=== PATIENT | male | born 1990 | race Caucasian/White ===

== ENCOUNTER 2023-10-18 19:59 | Emergency (ER) | payer OTHER ==
--- NOTE | 2023-10-18 20:43 | ERPHSYRPT ---
- History of Present Illness Time Seen by Provider: 10/18/23 20:43 Source: patient, family Exam Limitations: no limitations Physician History: pt has hemorrhoids and they have come out recently with pain. THere are thrombosed hemorrhoids chronic without much erythema and no signs of infection. rectal exam othw normal. Pt is advised that he will need treatment with surgery to [place] and tx these and should contact his friday for that referral. These were manually replaced but there are some external as well. Discussed risk/benefit of Tx with topical steroids and local anesthesia with pt and and they wish to proceed. No t-other complaints of symptoms at this time and ele diet OK. abd soft nontender without peritoneal signs. Timing/Duration: day(s) Severity: moderate Allergies/Adverse Reactions: No Known Drug Allergies Allergy (Unverified 10/18/23 20:49) Home Medications: ALPRAZolam 1 MG [Xanax 1 mg] 2 mg PO BID 10/18/23 [History] Dextroamphetamine/Amphetamine [Adderall 10 mg Tablet] 30 mg PO HS 10/18/23 [History] Dextroamphetamine/Amphetamine [Adderall Xr 30 mg Capsule] 30 mg PO DAILY 10/18/23 [History] Duloxetine HCl 30 mg [Cymbalta 30 MG Capsule] 2 tab PO DAILY 10/18/23 [History] Trazodone HCl 50 mg [Desyrel 50 mg] 50 mg PO HS 10/18/23 [History] Hx Tetanus, Diphtheria Vaccination/Date Given: Yes Hx Influenza Vaccination/Date Given: No Hx Pneumococcal Vaccination/Date Given: No - Review of Systems Constitutional: No Fever, No Chills Eyes: No Symptoms Ears, Nose, & Throat: No Symptoms Respiratory: No Cough, No Dyspnea Cardiac: No Chest Pain, No Edema, No Syncope Abdominal/Gastrointestinal: No Abdominal Pain, No Nausea, No Vomiting, No Diarrhea Genitourinary Symptoms: No Dysuria Musculoskeletal: No Back Pain, No Neck Pain Skin: Other (hemorrhoids no active bleeding), No Rash Neurological: No Dizziness, No Focal Weakness, No Sensory Changes Psychological: No Symptoms Endocrine: No Symptoms All Other Systems: Reviewed and Negative - Past Medical History Pertinent Past Medical History: No - Past Surgical History Past Surgical History: No - Social History Smoking Status: Current every day smoker Exposure to second hand smoke: No Drug Use: none Patient Lives Alone: No - Nursing Vital Signs Nursing Vital Signs: Initial Vital Signs Temperature 98.8 F 10/18/23 20:46 Pulse Rate 91 H 10/18/23 20:46 Respiratory Rate 16 10/18/23 20:46 Blood Pressure 122/82 10/18/23 20:46 O2 Sat by Pulse Oximetry 97 10/18/23 20:46 Pain Scale Pain Intensity 4 - Physical Exam General Appearance: no apparent distress, alert Eye Exam: PERRL/EOMI, eyes nml inspection Ears, Nose, Throat Exam: normal ENT inspection, TMs normal, pharynx normal, moist mucous membranes Neck Exam: normal inspection, non-tender, supple, full range of motion Respiratory Exam: normal breath sounds, lungs clear, No respiratory distress Cardiovascular Exam: regular rate/rhythm, normal heart sounds, normal peripheral pulses Gastrointestinal/Abdomen Exam: soft, normal bowel sounds, No tenderness, No mass Rectal Exam: normal rectal tone, hemorrhoids (reducible thrombosed not actively bleeding), other Back Exam: normal inspection, normal range of motion, No CVA tenderness, No vertebral tenderness Extremity Exam: normal inspection, normal range of motion, pelvis stable Neurologic Exam: alert, oriented x 3, cooperative, normal mood/affect, nml cerebellar function, nml station & gait, sensation nml, No motor deficits Skin Exam: normal color, warm, dry, No rash Lymphatic Exam: No adenopathy - Course Nursing assessment & vital signs reviewed: Yes - Progress Progress: improved, re-examined Counseled pt/family regarding: diagnosis, need for follow-up Medical Desision Making - Independent Historian Additional History obtained from: Spouse - Discussion of managment Reviewed:: Need for additional workup Agreed on:: need for follow-up - Diagnostic Testing Diagnostic test were ordered, analyzed, and reviewed by me: No - Risk of complications The pt has a mod risk of morbidity or mortality based on: Need for prescription drug management - Departure Departure Disposition: Home Clinical Impression: Hemorrhoids Condition: Good Critical Care Time: No Referrals: [facility]OSP[facility] [Primary Care Provider] - Follow up/PCP as directed Instructions: Hemorrhoids (DC) Additional Instructions: contact your Friday to arrange to see surgeon for definitive Tx. Use the steroid cream after each bowel movement. Use wet wipes after each bowel movement. wear a pad if needed. avoid prolonged standing or walking until treated. return meantime if bleeding or other concerns. Prescriptions: Pramoxine HCl [Proctofoam] 15 gm TP BID #1 cartridge
[2023-10-18 21:07] VITALS: RESP 16; TEMP 98.8
[2023-10-18 21:32] VITALS: PULSE 95
[2023-10-18] MEDS ORDERED: Anucort-HC SUPPOSITORY PR PRN (22:32)
[2023-10-18 23:00] VITALS: BP 104/59; O2SAT 98
[2023-10-18] MEDS ORDERED: PREPARATION H Ointment RC SCH (23:00)
== END 2023-10-18 23:19 | disposition home or self-care (01) ==
LOC: ED 19:59
DX: K64.5 Perianal venous thrombosis (principal); Z79.899 Other long term (current) drug therapy; Z72.0 Tobacco use
CPT/HCPCS: 99282; A9270-GY

== ENCOUNTER 2023-12-08 12:08 | Emergency (ER) | payer OTHER ==
--- NOTE | 2023-12-08 12:10 | ERPHSYRPT ---
- History of Present Illness Time Seen by Provider: 12/08/23 12:10 Source: patient Exam Limitations: no limitations Physician History: This is an obese 33-year-old white male patient who complains of bilateral hand pain that has been present for 3 months. Patient states approximate 3 months ago he broke down about 1000 boxes. Since that time he has had pain in both of his hands. He has waited for quite some time thinking the pain would be improved. However it has not. He was sent to occupational therapy who felt that possibly patient has Dupuytren's contractures or possibly a degree of carpal tunnel syndrome. Patient did not fall or have any acute trauma to this area. Patient states that he did have a left hand x-ray which was normal but he has never had any other studies or treatment as an outpatient to help improve his symptoms. Patient does not have a cough. He denies hemoptysis, he denies shortness of breath. He has no chest pain. Patient does have a history of anxiety, PTSD and depression. Patient called the [place], who provides his insurance , they told him to come to the emergency room for evaluation. Patient states that the pain is tolerable when he is not moving his hands. However when he moves his hands he has increased amounts of pain. Occurred: other Method of Injury: other (No specific injury or trauma) Quality: aching Severity of Pain-Max: moderate Severity of Pain-Current: mild (To moderate. Greater pain when he is moving the hands) Extremities Pain Location: hand: bilateral Modifying Factors: Improves With: movement Associated Symptoms: none Allergies/Adverse Reactions: No Known Drug Allergies Allergy (Verified 12/08/23 12:24) Home Medications: ALPRAZolam 1 MG [Xanax 1 mg] 2 mg PO BID 10/18/23 [History] Dextroamphetamine/Amphetamine [Adderall 10 mg Tablet] 30 mg PO HS 10/18/23 [History] Dextroamphetamine/Amphetamine [Adderall Xr 30 mg Capsule] 30 mg PO DAILY 10/18/23 [History] Duloxetine HCl 30 mg [Cymbalta 30 MG Capsule] 120 mg PO HS 10/18/23 [History] Trazodone HCl 50 mg [Desyrel 50 mg] 50 mg PO HS 10/18/23 [History] Hx Tetanus, Diphtheria Vaccination/Date Given: Yes Hx Influenza Vaccination/Date Given: No Hx Pneumococcal Vaccination/Date Given: No Travel Risk - International Travel Have you traveled outside of the country in past 3 weeks: No - Emerging Infectious Disease Are you exhibiting symptoms associated with any current EIDs: No - Vaccine Status Hx Covid Vaccintation/Booster/Date Given: No - Review of Systems Constitutional: No Symptoms Eyes: No Symptoms Ears, Nose, & Throat: No Symptoms Respiratory: No Symptoms Cardiac: No Symptoms Abdominal/Gastrointestinal: No Symptoms Genitourinary Symptoms: No Symptoms Musculoskeletal: Other (Painful bilateral hands) Skin: No Symptoms Neurological: No Symptoms Psychological: No Symptoms Endocrine: No Symptoms Hematologic/Lymphatic: No Symptoms Immunological/Allergic: No Symptoms All Other Systems: Reviewed and Negative - Past Medical History Pertinent Past Medical History: No GI Medical History: Gallbladder Disease, Hemorrhoids, Hernia, Other Psycho-Social History: Anxiety, Depression Other Medical History: PTSD with MDD, hiatal hernia, c-diff - Past Surgical History Past Surgical History: No Gastrointestinal: Appendectomy, Cholecystectomy Other Surgical History: hiatal hernia repair - Social History Smoking Status: Current every day smoker Exposure to second hand smoke: No Drug Use: none Patient Lives Alone: No - Nursing Vital Signs Nursing Vital Signs: Initial Vital Signs Temperature 96.4 F 12/08/23 12:17 Pulse Rate 91 H 12/08/23 12:17 Blood Pressure 160/108 12/08/23 12:17 O2 Sat by Pulse Oximetry 98 12/08/23 12:17 Pain Scale Pain Intensity 7 - Physical Exam General Appearance: no apparent distress, alert, anxiety, obese Eyes, Ears, Nose, Throat Exam: normal ENT inspection, moist mucous membranes Neck Exam: normal inspection, non-tender, supple, full range of motion Cardiovascular/Respiratory Exam: chest non-tender, no respiratory distress Abdominal Exam: non-tender Back Exam: normal inspection, normal range of motion, No CVA tenderness, No vertebral tenderness Shoulder Exam: normal inspection, non-tender, no evidence of injury, normal ROM Elbow/Forearm Exam: normal inspection, non-tender, no evidence of injury, normal ROM Wrist Exam: normal inspection, non-tender, no evidence of injury, normal ROM Hand Exam: normal inspection, no evidence of injury, normal ROM, soft tissue tenderness (Bilateral hands and digits with movement) Neuro/Tendon Exam: normal sensation, normal motor functions, normal tendon functions, responds to pain, no evidence tendon injury Mental Status Exam: alert, oriented x 3, cooperative Skin Exam: normal color, warm SpO2 Interpretation: normal O2 Delivery: Room Air - Course Nursing assessment & vital signs reviewed: Yes Ordered Tests: Active Orders 24 hr Category Date Time Status BMP Stat Lab 12/08/23 13:25 Completed D-DIMER QUANTITATIVE Stat Lab 12/08/23 13: Completed MAG [MAGNESIUM] Stat Lab 12/08/23 13: Completed Lab/Rad Data: Laboratory Result Diagrams 12/08/23 13: Laboratory Results 12/08/23 12/08/23 12/08/23 Range/Units 13: 13: 13:25 D-Dimer < 0.19 (0.0-0.50) mg/L Sodium 138 (135-145) mmol/L Potassium 4.5 (3.5-5.1) mmol/L Chloride 104 (98-107) mmol/L Carbon Dioxide 25 (22-30) mmol/L Anion Gap 13.1 (5-15) MEQ/L BUN 10 (9-20) mg/dL Creatinine 0.79 (0.66-1.25) mg/dL Estimated GFR 121.1 ML/MIN Glucose 98 (74-106) mg/dL Calcium 9.3 (8.4-10.2) mg/dL Magnesium 2.0 (1.6-2.3) mg/dL - Progress Progress: pain not gone completely, re-examined Progress Note: 12/08/23 13:31 This patient's medical issue is 1 of low to moderate complexity. The level of complexity in the workup performed is based on review of the patient's past medical history, review the patient's medication list, review the patient drug allergy list, history of present illness and physical findings on examination. This patient does not have any evidence of loss of blood flow to his digits. He has no evidence of acute traumatic injury. He has full function of both hands and wrists and all digits of both hands. There is no evidence of cellulitis or discoloration to either hand. The hands do not appear swollen. We will order a BMP, magnesium and D-dimer. If the D-dimer is elevated I will order of venous Doppler of both upper extremities. If the emergency department workup is negative, patient will need to be worked up as an outpatient. We will try to help him out by contacting hand surgery to see if they can see him soon and perform an outpatient workup for the possibility of Dupuytren's contractures and/or carpal tunnel syndrome. I will remotely send a prescription of prednisone and orphenadrine to the patient's pharmacy. 12/08/23 13:54 I interpreted the patient's laboratory data results. There is no evidence of any acute, emergent findings on the patient's laboratory data results. Counseled pt/family regarding: diagnosis, need for follow-up, rad results Medical Desision Making - Diagnostic Testing Diagnostic test were ordered, analyzed, and reviewed by me: Yes - Risk of complications The pt has a mod risk of morbidity or mortality based on: Need for prescription drug management - Departure Departure Disposition: Home Clinical Impression: Bilateral hand pain Condition: Stable Critical Care Time: No Referrals: [facility]OS[facility] [Primary Care Provider] - Follow up/PCP as directed Additional Instructions: Take your medication as prescribed. Dr. Tse's office (hand surgeon in [facility]) will contact you to make an appointment to be evaluated. Prescriptions: Prednisone 10 mg [Deltasone 10 mg] 10 mg PO TID #12 tablet Orphenadrine Citrate 100 mg [Norflex 100 MG Tablet] 100 mg PO BID #10 tab
[2023-12-08 12:25] VITALS: PULSE 91; TEMP 96.4
[2023-12-08 13:43] LABS: ANION GAP 13.1 MEQ/L (5-15); Calcium 9.3 mg/dL (8.4-10.2); Creatinine 1 0.79 mg/dL (0.66-1.25); EST GLOMERULAR FILTRATION RATE 121.1 ML/MIN; Potassium 4.5 mmol/L (3.5-5.1)
[2023-12-08 13:47] VITALS: BP 146/98; O2SAT 95
== END 2023-12-08 14:44 | disposition home or self-care (01) ==
LOC: ED 12:08
DX: M79.641 Pain in right hand (principal); M79.642 Pain in left hand; Z79.52 Long term (current) use of systemic steroids; Z79.899 Other long term (current) drug therapy; Z28.310 Unvaccinated for COVID-19; Z72.0 Tobacco use
CPT/HCPCS: 36415; 80048; 83735; 85379; 99282

== ENCOUNTER 2024-09-01 21:17 | Emergency (ER) | payer OTHER ==
[2024-09-01 21:37] VITALS: TEMP 98.3
[2024-09-01] MEDS ORDERED: Sodium Chloride 0.9% 1000 ML 1,000 ML ONE (21:47)
[2024-09-01] MEDS: Sodium Chloride 0.9% 1000 ML 1,000 ML IV STA (21:49)
[2024-09-01] MEDS ORDERED: TYLENOL 325 MG ONE (21:50)
[2024-09-01] MEDS ORDERED: TORAdol 30 mg Injection ONE (21:50)
[2024-09-01] MEDS: TORAdol 30 mg Injection IV ONE (21:51)
--- NOTE | 2024-09-01 21:53 | ERPHSYRPT ---
- History of Present Illness Time Seen by Provider: 09/01/24 21:35 Source: patient Exam Limitations: no limitations Patient Subjective Stated Complaint: pt states that he has a sorethroat and blisters in his mouth Triage Nursing Assessment: pt ambulated into the er; pt is axo x4; c/o sorethroat; pt states 8/10 pain to mouth; redness and blister present to oral cavity; mucus membranes pink and moist; no respiratory distress present; tachycardic; skin PDW Physician History: 33-year-old male presents to emergency department for evaluation of pain in his nose and throat. Some shortness of breath and "heartburn". Patient reports blisters in his mouth. Patient had nasal surgery at the [facility] within the past month. Patient's current symptomology started approximately 2 weeks ago. Patient went to a [facility] 2 days ago and was started on a Medrol Dosepak and doxycycline. Patient states that he has been taking medication as prescribed however symptoms have not improved. No nausea vomiting or diaphoresis. Patient observed to be tachycardic at rest. No respiratory distress. Patient symptoms are constant. Symptoms are moderate in intensity. No specific worsening or improving factors. Patient is also observed to be wearing a left wrist cock-up splint. Patient states that he had an orthopedic procedure performed within the past couple weeks. In light of patient's shortness of breath, tachycardia and recent orthopedic procedure we will order a D-dimer to evaluate for PE. No calf pain. Significant other at bedside. They voiced no other complaints or concerns at this time. Portions of this note were created with voice recognition technology. There may be grammatical, spelling, punctuation or sound alike errors. Timing/Duration: week(s) (2 weeks) Severity: moderate Modifying Factors: Improves With: nothing Associated Symptoms: shortness of breath, No nausea, No vomiting, No abdominal pain, No diaphoresis Allergies/Adverse Reactions: No Known Drug Allergies Allergy (Verified 09/01/24 21:22) Home Medications: ALPRAZolam 1 MG [Xanax 1 mg] 2 mg PO BID 10/18/23 [History] Dextroamphetamine/Amphetamine [Adderall 10 mg Tablet] 30 mg PO HS 10/18/23 [History] Dextroamphetamine/Amphetamine [Adderall Xr 30 mg Capsule] 30 mg PO DAILY 10/18/23 [History] Duloxetine HCl 30 mg [Cymbalta 30 MG Capsule] 60 mg PO HS 10/18/23 [H istory] Trazodone HCl 50 mg [Desyrel 50 mg] 50 mg PO HS 10/18/23 [History] Doxycycline Hyclate 100 mg PO BID 09/01/24 [History] Pilocarpine HCl 7.5 mg PO TID PRN 09/01/24 [History] methylPREDNISolone [Methylprednisolone] 4 mg PO UD 09/01/24 [History] Hx Tetanus, Diphtheria Vaccination/Date Given: Yes Hx Influenza Vaccination/Date Given: No Hx Pneumococcal Vaccination/Date Given: No Travel Risk - International Travel Have you traveled outside of the country in past 3 weeks: No - Emerging Infectious Disease Are you exhibiting symptoms associated with any current EIDs: Yes Symptoms: Cough: New Onset - Review of Systems Constitutional: No Symptoms, No Fever, No Chills Eyes: No Symptoms Ears, Nose, & Throat: No Symptoms Respiratory: No Symptoms, No Cough, No Dyspnea Cardiac: No Symptoms, No Chest Pain, No Edema, No Syncope Abdominal/Gastrointestinal: No Symptoms, No Abdominal Pain, No Nausea, No Vomiting, No Diarrhea Genitourinary Symptoms: No Symptoms, No Dysuria Musculoskeletal: No Symptoms, No Back Pain, No Neck Pain Skin: No Symptoms, No Rash Neurological: No Symptoms, No Dizziness, No Focal Weakness, No Sensory Changes Psychological: No Symptoms Endocrine: No Symptoms Hematologic/Lymphatic: No Symptoms Immunological/Allergic: No Symptoms All Other Systems: Reviewed and Negative - Past Medical History Pertinent Past Medical History: No Neurological History: No Pertinent History ENT History: No Pertinent History Cardiac History: No Pertinent History Respiratory History: No Pertinent History Endocrine Medical History: No Pertinent History Musculoskeletal History: No Pertinent History GI Medical History: Gallbladder Disease, Hemorrhoids, Hernia, Other History: No Pertinent History Psycho-Social History: Anxiety, Depression Male Reproductive Disorders: No Pertinent History Other Medical History: PTSD with MDD, hiatal hernia, c-diff - Past Surgical History Past Surgical History: Yes Neuro Surgical History: No Pertinent History Cardiac: No Pertinent History Respiratory: No Pertinent History Gastrointestinal: Appendectomy, Cholecystectomy, Hernia Repair Genitourinary: No Pertinent History Musculoskeletal: Orthopedic Surgery Male Surgical History: No Pertinent History Other Surgical History: hiatal hernia repair x2, nasal surgery, left dorsal release - Social History Smoking Status: Former smoker Exposure to second hand smoke: No Drug Use: none Patient Lives Alone: No - Social Determinants of Health Will the patient participate in the screening: Yes Do you worry about a steady place to live?: No Do you have any problems with any of the following?: No known problems In the past 12 months,have you had to go without utilities?: No Transportation Issues: No Has anyone in your support network made you feel unsafe?: No Have you or anyone in your house had to go without enough: No - Nursing Vital Signs Nursing Vital Signs: Initial Vital Signs Temperature 98.3 F 09/01/24 21:25 Pulse Rate 116 H 09/01/24 21:25 Respiratory Rate 20 09/01/24 21:25 Blood Pressure 138/89 09/01/24 21:25 O2 Sat by Pulse Oximetry 100 09/01/24 21:25 Pain Scale Pain Intensity 6 - Physical Exam General Appearance: no apparent distress, alert Eye Exam: PERRL/EOMI, eyes nml inspection Ears, Nose, Throat Exam: normal ENT inspection, TMs normal, pharynx normal, moist mucous membranes Neck Exam: normal inspection, non-tender, supple, full range of motion Respiratory Exam: normal breath sounds, lungs clear, No respiratory distress Cardiovascular Exam: regular rate/rhythm, normal heart sounds, normal peripheral pulses Gastrointestinal/Abdomen Exam: soft, normal bowel sounds, No tenderness, No mass Back Exam: normal inspection, normal range of motion, No CVA tenderness, No ve rtebral tenderness Extremity Exam: normal inspection, normal range of motion, pelvis stable Neurologic Exam: alert, oriented x 3, cooperative, normal mood/affect, sensation nml, No motor deficits Skin Exam: normal color, warm, dry, No rash Lymphatic Exam: No adenopathy SpO2 Interpretation: normal SpO2: 100 O2 Delivery: Room Air - Course Nursing assessment & vital signs reviewed: Yes EKG Interpreted by Me: RATE (100), Sinus Tach, NORMAL AXIS, NORMAL INTERVALS, NORMAL QRS - Radiology Exams Chest X-ray Interpretation: Teleradiologist Report (No acute findings on chest x-ray) Ordered Tests: Active Orders 24 hr Category Date Time Status Clinical Application Consultant STAT Care 09/01/24 21:45 Active EKG-ER Only STAT Care 09/01/24 21:45 Active IV Insertion STAT Care 09/01/24 21:45 Active Pulse Oximetry (ED) STAT Care 09/01/24 21:45 Active CHEST 1 VIEW (PORTABLE) Stat Exams 09/01/24 22:38 Completed BLOOD CULTURE Stat Lab 09/01/24 23:45 Received CBC W DIFF Stat Lab 09/01/24 21:50 Completed CMP Stat Lab 09/01/24 21:50 Completed D-DIMER QUANTITATIVE Stat Lab 09/01/24 21:50 Completed TROPONIN Q4H Lab 09/01/24 21:50 Completed TROPONIN Q4H Lab 09/02/24 00:57 Completed TROPONIN Q4H Lab 09/02/24 05:45 Ordered Medication Summary Discontinued Medications Generic Name Dose Route Start Last Admin Trade Name Freq PRN Reason Stop Dose Admin Acetaminophen 975 mg 09/01/24 21:48 09/01/24 22:12 Acetaminophen 325 Mg Tablet PO 09/01/24 21:49 Not Given STAT ONE Acetaminophen Confirm 09/01/24 21:50 Acetaminophen 325 Mg Tablet Administered 09/01/24 21:51 Dose 975 mg .ROUTE .STK-MED ONE Sodium Chloride 1,000 mls @ 999 mls/hr 09/01/24 21:45 09/01/24 23:29 Sodium Chloride 0.9% 1000 Ml IV 09/01/24 22:45 Infused .Q1H1M STA Infusion Sodium Chloride Confirm 09/01/24 21:47 Sodium Chloride 0.9% 1000 Ml Administered 09/01/24 21:48 Dose 1,000 mls @ ud .ROUTE .STK-MED ONE Ketorolac Tromethamine 30 mg 09/01/24 21:47 09/01/24 21:51 Ketorolac Tromethamine 30 Mg/Ml Inj IV 09/01/24 21:48 30 mg STAT ONE Administration Ketorolac Tromethamine Confirm 09/01/24 21:50 Ketorolac Tromethamine 30 Mg/Ml Inj Administered 09/01/24 21:51 Dose 30 mg .ROUTE .STK-MED ONE Lidocaine HCl 15 ml 09/02/24 00:43 09/02/24 00:45 Lidocaine Hcl 2% Viscous 15 Ml Udcup PO 09/02/24 00:44 15 ml STAT ONE Administration Lidocaine HCl Confirm 09/02/24 00:44 Lidocaine Hcl 2% Viscous 15 Ml Udcup Administered 09/02/24 00:45 Dose 15 ml .ROUTE .STK-MED ONE Morphine Sulfate 4 mg 09/01/24 23:32 09/01/24 23:35 Morphine Sulfate 4 Mg/Ml Injection IV 09/01/24 23:33 4 mg STAT ONE Administration Morphine Sulfate Confirm 09/01/24 23:34 Morphine Sulfate 4 Mg/Ml Injection Administered 09/01/24 23:35 Dose 4 mg .ROUTE .STK-MED ONE Ondansetron HCl 4 mg 09/01/24 23:32 09/01/24 23:35 Ondansetron Hcl 4 Mg/2 Ml Vial IV 09/01/24 23:33 4 mg STAT ONE Administration Ondansetron HCl Confirm 09/01/24 23:34 Ondansetron Hcl 4 Mg/2 Ml Vial Administered 09/01/24 23:35 Dose 4 mg .ROUTE .STK-MED ONE Lab/Rad Data: Laboratory Result Diagrams 09/01/24 21:50 09/01/24 21:50 Laboratory Results 09/02/24 09/01/24 09/01/24 Range/Units 00:57 21:55 21:55 WBC (4.23-9.07) x10^3/uL RBC (4.63-6.08) x10^6/uL Hgb (13.7-17.5) g/dL Hct (40.1-51.0) % MCV (79.0-92.2) fL MCH (25.7-32.2) pg MCHC (32.3-36.5) g/dL RDW (11.6-14.4) % Plt Count (163-337) x10^3/uL MPV (9.4-12.4) fL Gran % (34.0-67.9) % Immature Gran % (Auto) (0.001-0.429) % Nucleat RBC Rel Count (0.00-0.2) % Eos # (Auto) (0.04-0.54) x10^3/uL Immature Gran # (Auto) (0.001-0.031) x10^3u/L Absolute Lymphs (auto) (1.32-3.57) x10^3/uL Absolute Monos (auto) (0.30-0.82) x10^3/uL Absolute Nucleated RBC (0.00-0.012) x10^3u/L Lymphocytes % (21.8-53.1) % Monocytes % (5.3-12.2) % Eosinophils % (0.8-7.0) % Basophils % (0.2-1.2) % Absolute Granulocytes (1.78-5.38) x10^3/uL Basophils # (0.01-0.08) x10^3/uL D-Dimer (0.0-0.50) mg/L Sodium (135-145) mmol/L Potassium (3.5-5.1) mmol/L Chloride (98-107) mmol/L Carbon Dioxide (22-30) mmol/L Anion Gap (5-15) MEQ/L BUN (9-20) mg/dL Creatinine (0.66-1.25) mg/dL Estimated GFR ML/MIN Glucose (74-106) mg/dL Calcium (8.4-10.2) mg/dL Total Bilirubin (0.2-1.3) mg/dL AST (17-59) U/L ALT (0-50) U/L Alkaline Phosphatase (38-126) U/L Troponin I < 0.012 (0.000-0.033) ng/mL Serum Total Protein (6.3-8.2) g/dL Albumin (3.5-5.0) g/dL Influenza Type A Ag NEGATIVE (NEGATIVE) Influenza Type B Ag NEGATIVE (NEGATIVE) RSV (PCR) NEGATIVE (NEGATIVE) SARS-CoV-2 (PCR) NEGATIVE (NEGATIVE) Group A Strep Antibody NOT DETECTED (NEGATIVE) 09/01/24 09/01/24 09/01/24 Range/Units 21:50 21:50 21:50 WBC (4.23-9.07) x10^3/uL RBC (4.63-6.08) x10^6/uL Hgb (13.7-17.5) g/dL Hct (40.1-51.0) % MCV (79.0-92.2) fL MCH (25.7-32.2) pg MCHC (32.3-36.5) g/dL RDW (11.6-14.4) % Plt Count (163-337) x10^3/uL MPV (9.4-12.4) fL Gran % (34.0-67.9) % Immature Gran % (Auto) (0.001-0.429) % Nucleat RBC Rel Count (0.00-0.2) % Eos # (Auto) (0.04-0.54) x10^3/uL Immature Gran # (Auto) (0.001-0.031) x10^3u/L Absolute Lymphs (auto) (1.32-3.57) x10^3/uL Absolute Monos (auto) (0.30-0.82) x10^3/uL Absolute Nucleated RBC (0.00-0.012) x10^3u/L Lymphocytes % (21.8-53.1) % Monocytes % (5.3-12.2) % Eosinophils % (0.8-7.0) % Basophils % (0.2-1.2) % Absolute Granulocytes (1.78-5.38) x10^3/uL Basophils # (0.01-0.08) x10^3/uL D-Dimer 0.34 (0.0-0.50) mg/L Sodium 139 (135-145) mmol/L Potassium 4.6 (3.5-5.1) mmol/L Chloride 103 (98-107) mmol/L Carbon Dioxide 24 (22-30) mmol/L Anion Gap 17.0 H (5-15) MEQ/L BUN 17 (9-20) mg/dL Creatinine 0.83 (0.66-1.25) mg/dL Estimated GFR 119.3 ML/MIN Glucose 114 H (74-106) mg/dL Calcium 10.0 (8.4-10.2) mg/dL Total Bilirubin 0.40 (0.2-1.3) mg/dL AST 32 (17-59) U/L ALT 40 (0-50) U/L Alkaline Phosphatase 72 (38-126) U/L Troponin I < 0.012 (0.000-0.033) ng/mL Serum Total Protein 7.5 (6.3-8.2) g/dL Albumin 4.8 (3.5-5.0) g/dL Influenza Type A Ag (NEGATIVE) Influenza Type B Ag (NEGATIVE) RSV (PCR) (NEGATIVE) SARS-CoV-2 (PCR) (NEGATIVE) Group A Strep Antibody (NEGATIVE) 09/01/24 Range/Units 21:50 WBC 19.0 H (4.23-9.07) x10^3/uL RBC 5.37 (4.63-6.08) x10^6/uL Hgb 15.2 (13.7-17.5) g/dL Hct 46.0 (40.1-51.0) % MCV 85.7 (79.0-92.2) fL MCH 28.3 (25.7-32.2) pg MCHC 33.0 (32.3-36.5) g/dL RDW 12.4 (11.6-14.4) % Plt Count 416 H (163-337) x10^3/uL MPV 10.4 (9.4-12.4) fL Gran % 83.5 H (34.0-67.9) % Immature Gran % (Auto) 0.6 H (0.001-0.429) % Nucleat RBC Rel Count 0.0 (0.00-0.2) % Eos # (Auto) 0.18 (0.04-0.54) x10^3/uL Immature Gran # (Auto) 0.12 H (0.001-0.031) x10^3u/L Absolute Lymphs (auto) 1.41 (1.32-3.57) x10^3/uL Absolute Monos (auto) 1.37 H (0.30-0.82) x10^3/uL Absolute Nucleated RBC 0.00 (0.00-0.012) x10^3u/L Lymphocytes % 7.4 L (21.8-53.1) % Monocytes % 7.2 (5.3-12.2) % Eosinophils % 0.9 (0.8-7.0) % Basophils % 0.4 (0.2-1.2) % Absolute Granulocytes 15.80 H (1.78-5.38) x10^3/uL Basophils # 0.08 (0.01-0.08) x10^3/uL D-Dimer (0.0-0.50) mg/L Sodium (135-145) mmol/L Potassium (3.5-5.1) mmol/L Chloride (98-107) mmol/L Carbon Dioxide (22-30) mmol/L Anion Gap (5-15) MEQ/L BUN (9-20) mg/dL Creatinine (0.66-1.25) mg/dL Estimated GFR ML/MIN Glucose (74-106) mg/dL Calcium (8.4-10.2) mg/dL Total Bilirubin (0.2-1.3) mg/dL AST (17-59) U/L ALT (0-50) U/L Alkaline Phosphatase (38-126) U/L Troponin I (0.000-0.033) ng/mL Serum Total Protein (6.3-8.2) g/dL Albumin (3.5-5.0) g/dL Influenza Type A Ag (NEGATIVE) Influenza Type B Ag (NEGATIVE) RSV (PCR) (NEGATIVE) SARS-CoV-2 (PCR) (NEGATIVE) Group A Strep Antibody (NEGATIVE) - Progress Progress: improved Progress Note: 33-year-old male presents to our ED with multiple complaints. Patient complains of nasal stuffiness. Sore throat. Oral sores. Shortness of breath. Because of patient's recent operative procedure D-dimer ordered. D-dimer negative. Chest x-ray completed. No acute findings on chest x-ray. EKG sinus rhythm. Patient was slightly tachycardic in our ED. IV fluids infused. Patient received Toradol for pain control. He advised Toradol did not significantly improve his pain. Patient received morphine and Zofran. Patient states this significantly helped his pain. However the pain was still present to some degree. Patient not wanting additional oral pain relief. We administered viscous lidocaine which resolved his oral pain. A prescription for viscous lidocaine forwarded to patient's pharmacy. Patient advised to continue taking his doxycycline and Medrol Dosepak. Patient can supplement Tylenol and Motrin for additional pain relief. Patient advised that the canker sores will be short-lived. The treatment is primarily good supportive care and pain control. Patient agrees to follow-up with his primary care doctor within 48 hours for reevaluation. Significant other at bedside. He voices no other complaints or concerns at this time. Portions of this note were created with voice recognition technology. There may be grammatical, spelling, punctuation or sound alike errors Complexity of problem addressed is moderate acute complicated no critical care time. Complex of data reviewed and analyzed is moderate. Test ordered chest reviewed results analyzed and correlated clinically with history and physical exam. Risk of complication and or risk of morbidity/mortality of patient management is low. Vital stable. Time spent to discharge patient is approximately 10 minutes. Plan of care established for shared decision making. No social determinants of health present to impede follow-up. Portions of this note were created with voice recognition technology. There may be grammatical, spelling, punctuation or sound alike errors 09/02/24 01:28 Counseled pt/family regarding: lab results, diagnosis, rad results - Departure Departure Disposition: Home Clinical Impression: Canker sores oral Condition: Stable Critical Care Time: No Referrals: HOSPITAL,'S [Primary Care Provider] - Follow up/PCP as directed Instructions: Mouth sores Additional Instructions: Discharge/Care Plan JUSTINE TAVAREZ was seen on 09/02/24 in the Emergency Room. The patient was counseled regarding Diagnosis,Lab results, Imaging studies, need for follow up and when to return to the Emergency Room. Prescriptions given: Discharge Note I have spoken with the patient and/or caregivers. I have explained the patient's condition, diagnosis and treatment plan based on the information available to me at this time. I have answered the patient's and/or caregiver's questions and addressed any concerns. The patient and/or caregivers have as good understanding of the patient's diagnosis, condition and treatment plan as can be expected at this point. The vital signs have been stable. The patient's condition is stable and appropriate for discharge from the emergency department. The patient will pursue further outpatient evaluation with the primary care physician or other designated or consulting physician as outlined in the discharge instructions. The patient and/or caregivers are agreeable to this plan of care and follow-up instructions have been explained in detail. The patient and/or caregivers have received these instruction. The patient/and or caregivers are aware that any significant change in condition or worsening of symptoms should prompt an immediate return to this or the closest emergency department or call 911. Prescriptions: lidocaine HCL [Lidocaine HCl Viscous] 15 ml MM QID PRN 6 Days #100 ml PRN Reason: Pain
[2024-09-01 21:55] LABS: BASOPHIL % 0.4 % (0.2-1.2); Basophil (Absolute #) 0.08 x10^3/uL (0.01-0.08); Eosinophil % 0.9 % (0.8-7.0); Eosinophil (Absolute #) 0.18 x10^3/uL (0.04-0.54); Hemoglobin 15.2 g/dL (13.7-17.5); IMMATURE GRAN # 0.12 x10^3u/L (0.001-0.031); IMMATURE GRAN % 0.6 % (0.001-0.429); Lymphocyte (Absolute #) 1.41 x10^3/uL (1.32-3.57); Lymphocytes % 7.4 % (21.8-53.1); Mean Cell Volume 85.7 fL (79.0-92.2); Mean Corpuscular Hemoglobin 28.3 pg (25.7-32.2); Mean Platelet Volume 10.4 fL (9.4-12.4); Monocyte (Absolute #) 1.37 x10^3/uL (0.30-0.82); Monocytes % 7.2 % (5.3-12.2); Neutrophil % 83.5 % (34.0-67.9); Platelet Count 416 x10^3/uL (163-337); Red Blood Count 5.37 x10^6/uL (4.63-6.08); Red Cell Distribution Width 12.4 % (11.6-14.4)
[2024-09-01] MEDS: TYLENOL 325 MG PO ONE (22:12)
[2024-09-01 22:33] LABS: ALBUMIN 4.8 g/dL (3.5-5.0); BILIRUBIN,TOTAL 0.4 mg/dL (0.2-1.3); Creatinine 1 0.83 mg/dL (0.66-1.25); EST GLOMERULAR FILTRATION RATE 119.3 ML/MIN; Potassium 4.6 mmol/L (3.5-5.1); Total Protein 7.5 g/dL (6.3-8.2)
[2024-09-01 23:07] LABS: INFLUENZA A NEGATIVE (NEGATIVE); INFLUENZA B NEGATIVE (NEGATIVE); RESPIRATORY SYNCTIAL VIRUS NEGATIVE (NEGATIVE); SARS-CoV-2 Xpert Express NEGATIVE (NEGATIVE)
[2024-09-01] MEDS ORDERED: MORPHINE SULFATE 4 MG INJ ONE (23:34)
[2024-09-01] MEDS ORDERED: Zofran 4 MG/2 ML VIAL ONE (23:34)
[2024-09-01] MEDS: Zofran 4 MG/2 ML VIAL IV ONE (23:35)
[2024-09-01] MEDS: MORPHINE SULFATE 4 MG INJ IV ONE (23:35)
--- NOTE | 2024-09-02 00:01 | XRAY ---
CLINICAL HISTORY: sob COMPARISON: None. TECHNIQUE: Radiograph of chest was acquired. FINDINGS: Lungs are clear and well-expanded with no pulmonary infiltrate. No pleural effusion is detected. The cardiomediastinal silhouette is within normal limits. No acute osseous abnormality. IMPRESSION: 1. No acute abnormality detected. Electronically Signed by: Lamont Mathur MD. (09/01/2024 23:56:36 EST)
[2024-09-02] MEDS ORDERED: XYLOCAINE VISCOUS 2% 15 ML CUP ONE ×2 (00:44→01:34)
[2024-09-02] MEDS: XYLOCAINE VISCOUS 2% 15 ML CUP PO ONE ×2 (00:45→01:34)
[2024-09-02 01:30] VITALS: BP 132/85; PULSE 92; RESP 19
[2024-09-02 01:37] VITALS: O2SAT 100
== END 2024-09-02 01:34 | disposition home or self-care (01) ==
LOC: ED 21:17
DX: K12.0 Recurrent oral aphthae (principal); R06.02 Shortness of breath; R07.0 Pain in throat; Z98.890 Other specified postprocedural states; R00.0 Tachycardia, unspecified
CPT/HCPCS: 0241U; 36415; 71045; 80053; 84484; 85025; 85379; 87040; 87651; 93005; 93041; 94760; 96360; 96374; 96375; 99285; 99284; J1885; J2270; J2405; A9270-GY

== ENCOUNTER 2024-09-04 01:27 | Emergency (ER) | payer OTHER ==
[2024-09-04 02:09] VITALS: RESP 24; TEMP 98.3
[2024-09-04] MEDS ORDERED: XYLOCAINE VISCOUS 2% 15 ML CUP ONE (02:47)
[2024-09-04] MEDS ORDERED: DECADRON 10MG INJ. ONE (02:47)
[2024-09-04] MEDS ORDERED: MAALOX ES 30 ML UNIT DOSE ONE (02:48)
[2024-09-04] MEDS: GI COCKTAIL 45 ML (Maalox/Lidocaine) PO ONE (02:50)
[2024-09-04] MEDS: DECADRON 10MG INJ. PO ONE (02:50)
--- NOTE | 2024-09-04 03:07 | ERPHSYRPT ---
- History of Present Illness Time Seen by Provider: 09/04/24 02:00 Source: patient Exam Limitations: no limitations Patient Subjective Stated Complaint: pt states worsening mouth pain Triage Nursing Assessment: pt ambulated into the er; pt is axo x4; c/o mouth pain; pt states 8/10 pain to mouth; blisters present in mouth; petechia present to soft palate; lips dry and cracked; skin warm diaphoretic pale; no respiratory distress present; vitals wnl Physician History: The patient presents with severe oral ulcers and throat pain. He has severe oral ulcers and throat pain that began approximately two weeks ago. Initially, he thought the symptoms were related to bronchitis, as he experienced a severe cough and throat pain. Around the same time, he noticed painful ulcers developing on his cheeks, lips, and down his throat, appearing as white lesions with a burning sensation. He sought care at a [facility] facility and was informed that he might have mild pneumonia. A workup revealed a slightly elevated white blood cell count, and he was told his condition was consistent with canker sores. Despite treatment with lidocaine mouthwash, the pain has worsened, and the lidocaine provides no relief. He describes tasting blood and notes that the skin inside his mouth began peeling within twelve hours of the onset of ulcers. He has been on a Medrol pack, doxycycline 9 mg three times a day for five days, prednisone 60 mg once a day, and azithromycin 250 mg. He uses eye drops due to burning in his eyes, particularly the left one, which causes significant pain upon application. He mentions having had sinus surgery five weeks ago and hand surgery, which he believes may have weakened his immune system. He is experiencing severe pain, difficulty eating and drinking, and a persistent headache localized to the area of his sinus surgery. Timing/Duration: abrupt onset Severity: severe ENT Location: mouth Prearrival Treatment: over the counter meds, prescription meds Modifying Factors: Improves With: nothing Associated Symptoms: facial pain/swelling, headache, jaw pain, poor fluid intake, poor solids intake, sore throat, No fever Allergies/Adverse Reactions: No Known Drug Allergies Allergy (Verified 09/04/24 01:34) Home Medications: ALPRAZolam 1 MG [Xanax 1 mg] 2 mg PO BID 10/18/23 [History] Dextroamphetamine/Amphetamine [Adderall 10 mg Tablet] 30 mg PO HS 10/18/23 [History] Dextroamphetamine/Amphetamine [Adderall Xr 30 mg Capsule] 30 mg PO DAILY 10/18/23 [History] Duloxetine HCl 30 mg [Cymbalta 30 MG Capsule] 60 mg PO HS 10/18/23 [History] Trazodone HCl 50 mg [Desyrel 50 mg] 50 mg PO HS 10/18/23 [History] Pilocarpine HCl 7.5 mg PO TID PRN 09/01/24 [History] Azithromycin 500 mg PO DAILY 09/04/24 [History] Moxifloxacin HCl [Moxifloxacin] 1 drop OP TID 09/04/24 [History] Prednisolone Acetate/Pf [Prednisolone Acet 1% Eye Drop] 1 drop OP QID 09/04/24 [History] predniSONE [Prednisone] 60 mg PO DAILY 09/04/24 [History] Hx Tetanus, Diphtheria Vaccination/Date Given: Yes Hx Influenza Vaccination/Date Given: No Hx Pneumococcal Vaccination/Date Given: No Travel Risk - International Travel Have you traveled outside of the country in past 3 weeks: No - Emerging Infectious Disease Are you exhibiting symptoms associated with any current EIDs: Yes Symptoms: Cough: New Onset - Review of Systems All Other Systems: Reviewed and Negative - Past Medical History Pertinent Past Medical History: Yes Neurological History: No Pertinent History ENT History: No Pertinent History Cardiac History: No Pertinent History Respiratory History: No Pertinent History Endocrine Medical History: No Pertinent History Musculoskeletal History: No Pertinent History GI Medical History: Gallbladder Disease, Hemorrhoids, Hernia, Other History: No Pertinent History Psycho-Social History: Anxiety, Depression Male Reproductive Disorders: No Pertinent History Other Medical History: PTSD with MDD, hiatal hernia, c-diff - Past Surgical History Past Surgical History: Yes Neuro Surgical History: No Pertinent History Cardiac: No Pertinent History Respiratory: No Pertinent History Gastrointestinal: Appendectomy, Cholecystectomy, Hernia Repair Genitourinary: No Pertinent History Musculoskeletal: Orthopedic Surgery Male Surgical History: No Pertinent History Other Surgical History: hiatal hernia repair x2, nasal surgery, left dorsal release - Social History Smoking Status: Former smoker Exposure to second hand smoke: No Drug Use: none Patient Lives Alone: No - Social Determinants of Health Will the patient participate in the screening: Yes Do you worry about a steady place to live?: No Do you have any problems with any of the following?: No known problems In the past 12 months,have you had to go without utilities?: No Transportation Issues: No Has anyone in your support network made you feel unsafe?: No Have you or anyone in your house had to go without enough: No - Nursing Vital Signs Nursing Vital Signs: Initial Vital Signs Pulse Rate 99 H 09/04/24 01:33 Blood Pressure 141/96 09/04/24 01:33 O2 Sat by Pulse Oximetry 96 09/04/24 01:33 Pain Scale Pain Intensity 6 - Physical Exam General Appearance: mild distress Eye Exam: left eye: conjunctival hemorrhage Ear Exam: bilateral ear: auricle normal, canal normal, TM normal Nasal Exam: normal inspection Neurologic Exam: alert, oriented x 3, cooperative Skin Exam: normal color, warm, dry, No rash SpO2 Interpretation: normal SpO2: 94 O2 Delivery: Room Air Comments: ulcerations throughout gingiva, bucal mucosa and palate. pharyngeal erythema w/o abscess. - Course Nursing assessment & vital signs reviewed: Yes Ordered Tests: Medication Summary Discontinued Medications Generic Name Dose Route Start Last Admin Trade Name Angel PRN Reason Stop Dose Admin Hydrocodone Bitart/Acetaminophen 1 tablet 09/04/24 04:51 09/04/24 04:55 Hydrocodone/Acetamin 10-325 Mg Tablet PO 09/04/24 04:52 1 tablet ONCE ONE Administration Hydrocodone Bitart/Acetaminophen Confirm 09/04/24 04:54 Hydrocodone/Acetamin 10-325 Mg Tablet Administered 09/04/24 04:55 Dose 1 tablet .ROUTE .STK-MED ONE Al Hydrox/Mg Hydrox/Simethicone Confirm 09/04/24 02:48 Mag Hydrox/Al Hydrox/Simeth 30 Ml Udcup Administered 09/04/24 02:49 Dose 30 ml .ROUTE .STK-MED ONE Dexamethasone Sodium Phosphate 10 mg 09/04/24 02:44 09/04/24 02:50 Dexamethasone Sod Phosphate 10 Mg/Ml PO 09/04/24 02:45 10 mg STAT ONE Administration Dexamethasone Sodium Phosphate Confirm 09/04/24 02:47 Dexamethasone Sod Phosphate 10 Mg/Ml Administered 09/04/24 02:48 Dose 10 mg .ROUTE .STK-MED ONE Lidocaine HCl Confirm 09/04/24 02:47 Lidocaine Hcl 2% Viscous 15 Ml Udcup Administered 09/04/24 02:48 Dose 15 ml .ROUTE .STK-MED ONE Magnesium Hydroxide 45 ml 09/04/24 02:42 09/04/24 02:50 Mag Hydrx/Alum Hyd/Simeth/Lido 45 Ml Bottle PO 09/04/24 02:43 45 ml STAT ONE Administration Lab/Rad Data: Laboratory Result Diagrams 09/04/24 03:25 09/04/24 03:25 Laboratory Results 09/04/24 09/04/24 09/04/24 Range/Units 03:25 03:25 03:25 WBC 12.9 H (4.23-9.07) x10^3/uL RBC 5.04 (4.63-6.08) x10^6/uL Hgb 14.3 (13.7-17.5) g/dL Hct 42.2 (40.1-51.0) % MCV 83.7 (79.0-92.2) fL MCH 28.4 (25.7-32.2) pg MCHC 33.9 (32.3-36.5) g/dL RDW 12.2 (11.6-14.4) % Plt Count 385 H (163-337) x10^3/uL MPV 10.5 (9.4-12.4) fL Gran % 86.7 H (34.0-67.9) % Immature Gran % (Auto) 0.9 H (0.001-0.429) % Nucleat RBC Rel Count 0.0 (0.00-0.2) % Eos # (Auto) 0.03 L (0.04-0.54) x10^3/uL Immature Gran # (Auto) 0.12 H (0.001-0.031) x10^3u/L Absolute Lymphs (auto) 1.06 L (1.32-3.57) x10^3/uL Absolute Monos (auto) 0.45 (0.30-0.82) x10^3/uL Absolute Nucleated RBC 0.00 (0.00-0.012) x10^3u/L Lymphocytes % 8.2 L (21.8-53.1) % Monocytes % 3.5 L (5.3-12.2) % Eosinophils % 0.2 L (0.8-7.0) % Basophils % 0.5 (0.2-1.2) % Absolute Granulocytes 11.22 H (1.78-5.38) x10^3/uL Basophils # 0.06 (0.01-0.08) x10^3/uL ESR (0-15) mm/hr Sodium 136 (135-145) mmol/L Potassium 4.1 (3.5-5.1) mmol/L Chloride 104 (98-107) mmol/L Carbon Dioxide 23 (22-30) mmol/L Anion Gap 13.0 (5-15) MEQ/L BUN 20 (9-20) mg/dL Creatinine 0.80 (0.66-1.25) mg/dL Estimated GFR 120.6 ML/MIN Glucose 127 H (74-106) mg/dL Calcium 9.4 (8.4-10.2) mg/dL Total Bilirubin 0.40 (0.2-1.3) mg/dL AST 28 (17-59) U/L ALT 34 (0-50) U/L Alkaline Phosphatase 74 (38-126) U/L Serum Total Protein 7.6 (6.3-8.2) g/dL Albumin 4.6 (3.5-5.0) g/dL Rheumatoid Factor <10.0 (<14.0) IU/mL Anti-CCP FEIA c/o 6.9 0 (0-19) units CELINE Titer Positive H (.) CELINE Homogeneous Pattern TNP CELINE Nucleolar Pattern TNP CELINE Spindle Teddy Pattern TNP CELINE Midbody Pattern TNP CELINE Centriole Pattern TNP CELINE Nuclear Dot Pattern TNP CELINE PCNA Pattern TNP CELINE Nuclear Membr Pat TNP CELINE Speckled Pattern 1:160 H (.) CELINE Centromere Pattern TNP CELINE Comment Comment (.) CELINE Comment 2 Comment (.) CHECO-1 Antibody <0.2 (0.0-0.9) AI SS-A Antibody 0.2 (0.0-0.9) AI SS-B Antibody 1.2 H (0.0-0.9) AI Sm ([place]) Antibody <0.2 (0.0-0.9) AI [employer] SALES REPRESENTATIVE Antibody <0.2 (0.0-0.9) AI SM/[employer] SALES REPRESENTATIVE IgG Antibody <0.2 (0.0-0.9) AI Scl-70 Scleroderma Ab <0.2 (0.0-0.9) AI Double Strand DNA Ab <1 (0-9) IU/mL Ribosomal P Prot Ab <0.2 (0.0-0.9) AI Chromatin Antibody <0.2 (0.0-0.9) AI Centromere B Antibody <0.2 (0.0-0.9) AI HLA B Loci Typing Pending HLA B Locus Allele 2 Pending HLA-DQB1 Methodology Pending HIV 1&2 Ab/P24 Ag 4thGn Non Reactive (Non Reactive) 09/04/24 Range/Units 03:25 WBC (4.23-9.07) x10^3/uL RBC (4.63-6.08) x10^6/uL Hgb (13.7-17.5) g/dL Hct (40.1-51.0) % MCV (79.0-92.2) fL MCH (25.7-32.2) pg MCHC (32.3-36.5) g/dL RDW (11.6-14.4) % Plt Count (163-337) x10^3/uL MPV (9.4-12.4) fL Gran % (34.0-67.9) % Immature Gran % (Auto) (0.001-0.429) % Nucleat RBC Rel Count (0.00-0.2) % Eos # (Auto) (0.04-0.54) x10^3/uL Immature Gran # (Auto) (0.001-0.031) x10^3u/L Absolute Lymphs (auto) (1.32-3.57) x10^3/uL Absolute Monos (auto) (0.30-0.82) x10^3/uL Absolute Nucleated RBC (0.00-0.012) x10^3u/L Lymphocytes % (21.8-53.1) % Monocytes % (5.3-12.2) % Eosinophils % (0.8-7.0) % Basophils % (0.2-1.2) % Absolute Granulocytes (1.78-5.38) x10^3/uL Basophils # (0.01-0.08) x10^3/uL ESR 29 H (0-15) mm/hr Sodium (135-145) mmol/L Potassium (3.5-5.1) mmol/L Chloride (98-107) mmol/L Carbon Dioxide (22-30) mmol/L Anion Gap (5-15) MEQ/L BUN (9-20) mg/dL Creatinine (0.66-1.25) mg/dL Estimated GFR ML/MIN Glucose (74-106) mg/dL Calcium (8.4-10.2) mg/dL Total Bilirubin (0.2-1.3) mg/dL AST (17-59) U/L ALT (0-50) U/L Alkaline Phosphatase (38-126) U/L Serum Total Protein (6.3-8.2) g/dL Albumin (3.5-5.0) g/dL Rheumatoid Factor (<14.0) IU/mL Anti-CCP FEIA c/o 6.9 (0-19) units CELINE Titer (.) CELINE Homogeneous Pattern CELINE Nucleolar Pattern CELINE Spindle Teddy Pattern CELINE Midbody Pattern CELINE Centriole Pattern CELINE Nuclear Dot Pattern CELINE PCNA Pattern CELINE Nuclear Membr Pat CELINE Speckled Pattern (.) CELINE Centromere Pattern CELINE Comment (.) CELINE Comment 2 (.) CHECO-1 Antibody (0.0-0.9) AI SS-A Antibody (0.0-0.9) AI SS-B Antibody (0.0-0.9) AI Sm ([place]) Antibody (0.0-0.9) AI [employer] SALES REPRESENTATIVE Antibody (0.0-0.9) AI SM/[employer] SALES REPRESENTATIVE IgG Antibody (0.0-0.9) AI Scl-70 Scleroderma Ab (0.0-0.9) AI Double Strand DNA Ab (0-9) IU/mL Ribosomal P Prot Ab (0.0-0.9) AI Chromatin Antibody (0.0-0.9) AI Centromere B Antibody (0.0-0.9) AI HLA B Loci Typing HLA B Locus Allele 2 HLA-DQB1 Methodology HIV 1&2 Ab/P24 Ag 4thGn (Non Reactive) - Progress Progress: improved Progress Note: Oral Ulcers Severe oral ulcers affecting cheeks, lips, and throat, characterized by white lesions and skin peeling. Pain is severe and unrelieved by lidocaine mouthwash. Symptoms worsened despite steroids and antibiotics. Differential includes Behcet syndrome, aphthous stomatitis, herpetic stomatitis, or Benitez-Dio syndrome, considering recent medication use and systemic symptoms. Ineffectiveness of lidocaine suggests need for alternative pain management. - Consult infectious disease specialist for further evaluation and management - Consider alternative pain management strategies - Review current medications for potential adverse reactions - GI cocktail, oral Decadron given w/o significant improvement. - Herndon helped take edge off of the pain. Conjunctivitis Burning and pain in the left eye with redness. Symptoms cause significant disc omfort with eye drops. Conjunctivitis may relate to systemic condition causing oral ulcers. - Continue current eye drops for symptomatic relief Post-Surgical Recovery Recovering from recent sinus and hand surgeries, potentially contributing to weakened immune system and increased susceptibility to infections or inflammatory conditions. Follow-up Awaiting follow-up with ENT specialist and virtual consultation with infectious disease specialist through [facility]. 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
[2024-09-04 03:34] LABS: Absolute Neutrophil Ct (ANC) 11.22 x10^3/uL (1.78-5.38); BASOPHIL % 0.5 % (0.2-1.2); Basophil (Absolute #) 0.06 x10^3/uL (0.01-0.08); Eosinophil % 0.2 % (0.8-7.0); Eosinophil (Absolute #) 0.03 x10^3/uL (0.04-0.54); Hematocrit 42.2 % (40.1-51.0); Hemoglobin 14.3 g/dL (13.7-17.5); IMMATURE GRAN # 0.12 x10^3u/L (0.001-0.031); IMMATURE GRAN % 0.9 % (0.001-0.429); Lymphocyte (Absolute #) 1.06 x10^3/uL (1.32-3.57); Lymphocytes % 8.2 % (21.8-53.1); Mean Cell Volume 83.7 fL (79.0-92.2); Mean Corpuscular Hemoglobin 28.4 pg (25.7-32.2); Mean Corpuscular Hgb Concent. 33.9 g/dL (32.3-36.5); Mean Platelet Volume 10.5 fL (9.4-12.4); Monocyte (Absolute #) 0.45 x10^3/uL (0.30-0.82); Monocytes % 3.5 % (5.3-12.2); Neutrophil % 86.7 % (34.0-67.9); Platelet Count 385 x10^3/uL (163-337); Red Blood Count 5.04 x10^6/uL (4.63-6.08); Red Cell Distribution Width 12.2 % (11.6-14.4); White Blood Count 12.9 x10^3/uL (4.23-9.07)
[2024-09-04 03:44] LABS: ALBUMIN 4.6 g/dL (3.5-5.0); BILIRUBIN,TOTAL 0.4 mg/dL (0.2-1.3); Calcium 9.4 mg/dL (8.4-10.2); Creatinine 1 0.8 mg/dL (0.66-1.25); EST GLOMERULAR FILTRATION RATE 120.6 ML/MIN; Potassium 4.1 mmol/L (3.5-5.1); Total Protein 7.6 g/dL (6.3-8.2)
[2024-09-04] MEDS ORDERED: NORCO 10-325 MG ONE (04:54)
[2024-09-04] MEDS: NORCO 10-325 MG PO ONE (04:55)
[2024-09-04 05:08] VITALS: O2SAT 94
[2024-09-04 05:34] VITALS: BP 115/81; PULSE 83
[2024-09-05 14:09] LABS: HIV Screen 4th Generation wRfx Non Reactive (Non Reactive)
[2024-09-07 11:08] LABS: Anti-Centromere B Antibodies <0.2 AI (0.0-0.9); Anti-Jo-1 <0.2 AI (0.0-0.9); Antichromatin Antibodies <0.2 AI (0.0-0.9); Antiribosomal P Antibodies <0.2 AI (0.0-0.9); Antiscleroderma-70 Antibodies <0.2 AI (0.0-0.9); RNP Antibodies <0.2 AI (0.0-0.9); Sjogren's Anti-SS-A 0.2 AI (0.0-0.9); Sjogren's Anti-SS-B 1.2 AI (0.0-0.9); Smith/RNP Antibodies <0.2 AI (0.0-0.9)
[2024-09-07 12:11] LABS: Anti-DNA (DS) Ab Qn <1 IU/mL (0-9); Antinuclear Antiboides, IFA Positive (.)
== END 2024-09-04 05:45 | disposition home or self-care (01) ==
LOC: ED 01:27
DX: M35.2 Behcet's disease (principal); K12.1 Other forms of stomatitis; R07.0 Pain in throat; H10.9 Unspecified conjunctivitis
CPT/HCPCS: 36415; 80053; 81373; 85025; 85652; 86038; 86200; 86431; 87389; 99283; J1100; A9270-GY

== ENCOUNTER 2025-08-23 22:57 | Emergency (ER) | payer OTHER ==
[2025-08-23 23:16] VITALS: TEMP 98
--- NOTE | 2025-08-23 23:44 | ERPHSYRPT ---
- History of Present Illness Time Seen by Provider: 08/23/25 23:40 Source: patient Exam Limitations: no limitations Patient Subjective Stated Complaint: pt reports several days ago he bent over and felt a "pop" in his left upper rib area. pt states the pain has gotten progessively worse. pt states the pain is throbbing in nature and worse with inspiration. pt denies recent trauma. Triage Nursing Assessment: pt is aox3, pupils perrl, afebrile, resps easy and non labored, pt lung sounds are clear throughout all gonzalez, cap refill < 3 seconds, radial pulses strong and equal, pt abd soft, non tender, pt skin pink warm dry. Physician History: 34-year-old male history of behcet presents to our ED for evaluation of pain in his left rib. Patient states he felt a "pop" in his left rib approximately 2 to 3 days ago. Since then pain has gotten progressively worse. No trauma. No associated nausea vomiting or diaphoresis. Pain worse with movement palpation and deep inspiration. Pain improves with rest. No associated fever. Patient otherwise feels well. He voices no other complaints or concerns at this time. Portions of this note were created with voice recognition technology. There may be grammatical, spelling, punctuation or sound alike errors Timing/Duration: today Severity: moderate Modifying Factors: Improves With: nothing Associated Symptoms: denies symptoms Allergies/Adverse Reactions: No Known Drug Allergies Allergy (Verified 08/23/25 23:12) Home Medications: ALPRAZolam 1 MG [Xanax 1 mg] 2 mg PO BID 10/18/23 [History] Dextroamphetamine/Amphetamine [Adderall 10 mg Tablet] 30 mg PO HS 10/18/23 [History] Dextroamphetamine/Amphetamine [Adderall Xr 30 mg Capsule] 30 mg PO DAILY 10/18/23 [History] Duloxetine HCl 30 mg [Cymbalta 30 MG Capsule] 60 mg PO HS 10/18/23 [History] Pilocarpine HCl 7.5 mg PO TID PRN 09/01/24 [History] Colchicine 0.6 mg PO DAILY 08/23/25 [History] Omeprazole 40 mg PO DAILY 08/23/25 [History] Hx Tetanus, Diphtheria Vaccination/Date Given: Yes Hx Influenza Vaccination/Date Given: No Hx Pneumococcal Vaccination/Date Given: No Immunizations Up to Date: Yes Travel Risk - International Travel Have you traveled outside of the country in past 3 weeks: No - Emerging Infectious Disease Are you exhibiting symptoms associated with any current EIDs: No Symptoms: Cough: New Onset - Review of Systems All Other Systems: Reviewed and Negative - Past Medical History Pertinent Past Medical History: Yes Neurological History: No Pertinent History ENT History: No Pertinent History Cardiac History: No Pertinent History Respiratory History: No Pertinent History Endocrine Medical History: No Pertinent History Musculoskeletal History: No Pertinent History GI Medical History: Gallbladder Disease, Hemorrhoids, Hernia, Other History: No Pertinent History Psycho-Social History: Anxiety, Depression Male Reproductive Disorders: No Pertinent History Other Medical History: PTSD with MDD, hiatal hernia, c-diff. Behcet's disease - Past Surgical History Past Surgical History: Yes Neuro Surgical History: No Pertinent History Cardiac: No Pertinent History Respiratory: No Pertinent History Gastrointestinal: Appendectomy, Cholecystectomy, Hernia Repair Genitourinary: No Pertinent History Musculoskeletal: Orthopedic Surgery Male Surgical History: No Pertinent History Other Surgical History: hiatal hernia repair x2, nasal surgery, left dorsal release. left hand surgery - trigger release L thumb - Social History Smoking Status: Former smoker Exposure to second hand smoke: No Drug Use: none - Social Determinants of Health Will the patient participate in the screening: Yes Do you worry about a steady place to live?: No Do you have any problems with any of the following?: No known problems In the past 12 months,have you had to go without utilities?: No Transportation Issues: No Has anyone in your support network made you feel unsafe?: No Have you or anyone in your house had to go w/o enough food: No - Nursing Vital Signs Nursing Vital Signs: Initial Vital Signs Temperature 98 F 08/23/25 23:02 Pulse Rate 112 H 08/23/25 23:02 Respiratory Rate 13 08/23/25 23:02 Blood Pressure 146/96 08/23/25 23:02 O2 Sat by Pulse Oximetry 99 08/23/25 23:02 Pain Scale Pain Intensity 6 - Physical Exam General Appearance: no apparent distress, alert Eye Exam: PERRL/EOMI, eyes nml inspection Ears, Nose, Throat Exam: normal ENT inspection, moist mucous membranes Neck Exam: normal inspection, full range of motion Respiratory Exam: normal breath sounds, lungs clear, No respiratory distress Cardiovascular Exam: regular rate/rhythm, normal heart sounds, normal peripheral pulses Gastrointestinal/Abdomen Exam: soft, normal bowel sounds, No tenderness, No mass Back Exam: normal inspection, normal range of motion, No CVA tenderness, No vertebral tenderness Extremity Exam: normal inspection, normal range of motion, pelvis stable Neurologic Exam: alert, oriented x 3, cooperative, normal mood/affect, sensation nml, No motor deficits Skin Exam: normal color, warm, dry, No rash Lymphatic Exam: No adenopathy SpO2 Interpretation: normal SpO2: 99 O2 Delivery: Room Air - Course Nursing assessment & vital signs reviewed: Yes EKG Interpreted by Me: RATE, Sinus Tach, NORMAL AXIS, NORMAL INTERVALS, NORMAL QRS - CT Exams Chest CT Interpretation: Tele-radiologist Report (Rolling hiatus hernia noted.) Ordered Tests: Active Orders 24 hr Category Date Time Status General Maintenance Helper STAT Care 08/23/25 23:40 Active EKG-ER Only STAT Care 08/23/25 23:39 Completed IV Insertion STAT Care 08/23/25 23:39 Active Pulse Oximetry (ED) STAT Care 08/23/25 23:39 Active CHEST WITH CONTRAST [CT] Stat Exams 08/24/25 00:39 Completed CBC W DIFF Stat Lab 08/23/25 23:53 Completed CMP Stat Lab 08/23/25 23:53 Completed D-DIMER QUANTITATIVE Stat Lab 08/23/25 23:53 Completed TROPONIN Q4H Lab 08/23/25 23:53 Completed TROPONIN Q4H Lab 08/24/25 03:45 Ordered TROPONIN Q4H Lab 08/24/25 07:45 Ordered Medication Summary Generic Name Dose Route Start Last Admin Trade Name Freq PRN Reason Stop Dose Admin Sodium Chloride 1,000 mls @ 100 mls/hr 08/23/25 23:45 08/23/25 23:48 Sodium Chloride 0.9% 1000 Ml IV 09/22/25 23:44 100 mls/hr .Q10H [place] Administration Discontinued Medications Generic Name Dose Route Start Last Admin Trade Name Freq PRN Reason Stop Dose Admin Ketorolac Tromethamine 30 mg 08/23/25 23:48 08/23/25 23:50 Ketorolac Tromethamine 30 Mg/Ml Inj IV 08/23/25 23:49 30 mg STAT ONE Administration Ketorolac Tromethamine Confirm 08/23/25 23:49 Ketorolac Tromethamine 30 Mg/Ml Inj Administered 08/23/25 23:50 Dose 30 mg .ROUTE .K-MED ONE Lab/Rad Data: Laboratory Result Diagrams 08/23/25 23:53 08/23/25 23:53 Laboratory Results 08/23/25 08/23/25 08/23/25 Range/Units 23:53 23:53 23:53 WBC (4.23-9.07) x10^3/uL RBC (4.63-6.08) x10^6/uL Hgb (13.7-17.5) g/dL Hct (40.1-51.0) % MCV (79.0-92.2) fL MCH (25.7-32.2) pg MCHC (32.3-36.5) g/dL RDW (11.6-14.4) % Plt Count (163-337) x10^3/uL MPV (9.4-12.4) fL Gran % (34.0-67.9) % Immature Gran % (Auto) (0.001-0.429) % Nucleat RBC Rel Count (0.00-0.2) % Eos # (Auto) (0.04-0.54) x10^3/uL Immature Gran # (Auto) (0.001-0.031) x10^3u/L Absolute Lymphs (auto) (1.32-3.57) x10^3/uL Absolute Monos (auto) (0.30-0.82) x10^3/uL Absolute Nucleated RBC (0.00-0.012) x10^3u/L Lymphocytes % (21.8-53.1) % Monocytes % (5.3-12.2) % Eosinophils % (0.8-7.0) % Basophils % (0.2-1.2) % Absolute Granulocytes (1.78-5.38) x10^3/uL Basophils # (0.01-0.08) x10^3/uL D-Dimer 0.45 (0.0-0.50) mg/L Sodium 136 (135-145) mmol/L Potassium 3.8 (3.5-5.1) mmol/L Chloride 104 (98-107) mmol/L Carbon Dioxide 21 L (22-30) mmol/L Anion Gap 14.4 (5-15) MEQ/L BUN 12 (9-20) mg/dL Creatinine 0.81 (0.66-1.25) mg/dL Estimated GFR 119.4 ML/MIN Glucose 167 H (74-106) mg/dL Calcium 9.5 (8.4-10.2) mg/dL Total Bilirubin 0.40 (0.2-1.3) mg/dL AST 39 (17-59) U/L ALT 39 (0-50) U/L Alkaline Phosphatase 66 (38-126) U/L Troponin I < 0.012 (0.000-0.033) ng/mL Serum Total Protein 6.7 (6.3-8.2) g/dL Albumin 4.0 (3.5-5.0) g/dL 08/23/25 Range/Units 23:53 WBC 9.2 H (4.23-9.07) x10^3/uL RBC 5.11 (4.63-6.08) x10^6/uL Hgb 14.4 (13.7-17.5) g/dL Hct 44.4 (40.1-51.0) % MCV 86.9 (79.0-92.2) fL MCH 28.2 (25.7-32.2) pg MCHC 32.4 (32.3-36.5) g/dL RDW 11.9 (11.6-14.4) % Plt Count 307 (163-337) x10^3/uL MPV 11.1 (9.4-12.4) fL Gran % 68.3 H (34.0-67.9) % Immature Gran % (Auto) 0.2 (0.001-0.429) % Nucleat RBC Rel Count 0.0 (0.00-0.2) % Eos # (Auto) 0.29 (0.04-0.54) x10^3/uL Immature Gran # (Auto) 0.02 (0.001-0.031) x10^3u/L Absolute Lymphs (auto) 1.85 (1.32-3.57) x10^3/uL Absolute Monos (auto) 0.67 (0.30-0.82) x10^3/uL Absolute Nucleated RBC 0.00 (0.00-0.012) x10^3u/L Lymphocytes % 20.2 L (21.8-53.1) % Monocytes % 7.3 (5.3-12.2) % Eosinophils % 3.2 (0.8-7.0) % Basophils % 0.8 (0.2-1.2) % Absolute Granulocytes 6.28 H (1.78-5.38) x10^3/uL Basophils # 0.07 (0.01-0.08) x10^3/uL D-Dimer (0.0-0.50) mg/L Sodium (135-145) mmol/L Potassium (3.5-5.1) mmol/L Chloride (98-107) mmol/L Carbon Dioxide (22-30) mmol/L Anion Gap (5-15) MEQ/L BUN (9-20) mg/dL Creatinine (0.66-1.25) mg/dL Estimated GFR ML/MIN Glucose (74-106) mg/dL Calcium (8.4-10.2) mg/dL Total Bilirubin (0.2-1.3) mg/dL AST (17-59) U/L ALT (0-50) U/L Alkaline Phosphatase (38-126) U/L Troponin I (0.000-0.033) ng/mL Serum Total Protein (6.3-8.2) g/dL Albumin (3.5-5.0) g/dL - Progress Progress: improved Progress Note: 34-year-old male history of behcet presents to our ED for evaluation of pain in his left rib. Patient states he felt a "pop" in his left rib approximately 2 to 3 days ago. Since then pain has gotten progressively worse. No trauma. No associated nausea vomiting or diaphoresis. Pain worse with movement palpation and deep inspiration. Physical exam significant for tenderness to palpation along the left lateral ribs 7-8 9. Overlying soft tissue intact. No signs of trauma. CT scan negative for acute pathology. No rib fracture. No PE. Troponin negative. Tachycardia resolved. No indication for further workup at this time. Patient agrees to follow-up with his primary care doctor within 48 hours for reevaluation. Portions of this note were created with voice recognition technology. There may be grammatical, spelling, punctuation or sound alike errors History obtained from patient Differential diagnosis includes pleurisy, PE, intercostal muscle strain, rib fracture Complexity of problems addressed is moderate acute complicated. No critical care time. Complexity of data reviewed and analyzed is moderate. Test ordered test reviewed results analyzed and correlated clinically with history and physical exam. Risk of complication and or risk of morbidity/mortality of patient management is high. A prescription for Toradol forwarded to patient's pharmacy. Patient received IV morphine for pain control. Vital stable. Time spent to discharge patient is approximately 20 minutes. Plan of care established for shared decision making. No social determinants of health present to impede follow-up. Portions of this note were created with voice recognition technology. There may be grammatical, spelling, punctuation or sound alike errors 08/24/25 02:28 08/24/25 02:30 Counseled pt/family regarding: lab results, diagnosis - Departure Departure Disposition: Home Clinical Impression: Rib pain on left side, Sinus tachycardia, Intercostal muscle strain Condition: Stable Critical Care Time: No Referrals: [facility]OSPITAL,'[facility] [Primary Care Provider, UNKNOWN] - Follow up/PCP as directed Instructions: Rib Fracture (DC), Bruised Rib Additional Instructions: Discharge/Care Plan CORBYJUSTINE CLARK was seen on 08/24/25 in the Emergency Room. The patient was counseled regarding Diagnosis,Lab results, Imaging studies, need for follow up and when to return to the Emergency Room. Prescriptions given: Discharge Note I have spoken with the patient and/or caregivers. I have explained the patient's condition, diagnosis and treatment plan based on the information available to me at this time. I have answered the patient's and/or caregiver's questions and addressed any concerns. The patient and/or caregivers have as good understanding of the patient's diagnosis, condition and treatment plan as can be expected at this point. The vital signs have been stable. The patient's condition is stable and appropriate for discharge from the emergency department. The patient will pursue further outpatient evaluation with the primary care physician or other designated or consulting physician as outlined in the discharge instructions. The patient and/or caregivers are agreeable to this plan of care and follow-up instructions have been explained in detail. The patient and/or caregivers have received these instruction. The patient/and or caregivers are aware that any significant change in condition or worsening of symptoms should prompt an immediate return to this or the closest emergency department or call 911. Prescriptions: Ketorolac Trometh 10 mg Tab [TORAdol 10 MG TABLET] 10 mg PO TID 5 Days #15 tablet
[2025-08-23] MEDS ORDERED: TORAdol 30 mg Injection ONE (23:49)
[2025-08-23] MEDS: TORAdol 30 mg Injection IV ONE (23:50)
[2025-08-23 23:56] LABS: BASOPHIL % 0.8 % (0.2-1.2); Basophil (Absolute #) 0.07 x10^3/uL (0.01-0.08); Eosinophil (Absolute #) 0.29 x10^3/uL (0.04-0.54); Hematocrit 44.4 % (40.1-51.0); Hemoglobin 14.4 g/dL (13.7-17.5); IMMATURE GRAN # 0.02 x10^3u/L (0.001-0.031); IMMATURE GRAN % 0.2 % (0.001-0.429); Lymphocyte (Absolute #) 1.85 x10^3/uL (1.32-3.57); Mean Corpuscular Hemoglobin 28.2 pg (25.7-32.2); Mean Corpuscular Hgb Concent. 32.4 g/dL (32.3-36.5); Monocyte (Absolute #) 0.67 x10^3/uL (0.30-0.82); NUCLEATED RBC # 0.00 x10^3u/L (0.00-0.012); NUCLEATED RBC % 0.0 % (0.00-0.2); Platelet Count 307 x10^3/uL (163-337); Red Blood Count 5.11 x10^6/uL (4.63-6.08); White Blood Count 9.2 x10^3/uL (4.23-9.07)
[2025-08-24 00:09] LABS: Calcium 9.5 mg/dL (8.4-10.2); Carbon Dioxide 21.0 mmol/L (22-30); Creatinine 1 0.81 mg/dL (0.66-1.25); EST GLOMERULAR FILTRATION RATE 119.4 ML/MIN; Glucose 167.0 mg/dL (74-106); Potassium 3.8 mmol/L (3.5-5.1); SGOT/AST 39.0 U/L (17-59); SGPT/ALT 39.0 U/L (0-50); Total Protein 6.7 g/dL (6.3-8.2)
--- NOTE | 2025-08-24 02:19 | XRAY ---
CLINICAL HISTORY: pain COMPARISON: None. TECHNIQUE: Contiguous axial images were obtained from the neck base through the upper abdomen following intravenous administration of contrast material. If IV contrast material had not been administered, the likelihood of detecting abnormalities relevant to the patient's condition would have been substantially decreased. In addition, sagittal and coronal reconstructions were performed. CT scan was performed according to ALARA (as low as reasonably achievable). FINDINGS: Rolling hiatus hernia noted. The lungs are clear, with no focal areas of consolidation. No pulmonary nodules are seen. The central airways are patent. There are no pleural effusions. No pneumothorax is seen. No axillary, hilar, or mediastinal adenopathy is identified. The visualized thyroid is unremarkable. The heart, aorta, and pulmonary arteries are of normal size and configuration. No pericardial effusion is identified. Imaged portions of the upper abdomen are unremarkable. No aggressive-appearing osseous lesions are identified. IMPRESSION: Rolling hiatus hernia noted. No other abnormality detected. Electronically Signed by: Lamont Mathur MD. (08/24/2025 02:18:25 EST)
[2025-08-24 02:33] VITALS: PULSE 87; RESP 15
[2025-08-24] MEDS ORDERED: Zofran 4 MG/2 ML VIAL ONE (02:38)
[2025-08-24] MEDS ORDERED: MORPHINE SULFATE 4 MG INJ ONE (02:39)
[2025-08-24] MEDS: MORPHINE SULFATE 4 MG INJ IV ONE (02:40)
[2025-08-24] MEDS: Zofran 4 MG/2 ML VIAL IV ONE (02:41)
[2025-08-24 03:05] VITALS: BP 115/72; O2SAT 96
== END 2025-08-24 03:09 | disposition home or self-care (01) ==
LOC: ED 22:57
DX: S29.011A Strain of muscle and tendon of front wall of thorax, initial encounter (principal); R07.89 Other chest pain; R00.0 Tachycardia, unspecified; Z79.899 Other long term (current) drug therapy